=== PATIENT | male | born 1975 | race Caucasian/White ===

== ENCOUNTER 2018-08-03 19:03 | Observation (INO) | payer OTHER ==
[2018-08-03 20:55] LABS: ADD MAN DIFF? NO
[2018-08-03 21:00] LABS: BASOPHILS % 0.6 % (0.0-2.0); EOSINOPHILS # 0.5 10^3/ul (0.0-0.5); EOSINOPHILS % 9.1 % (0.0-7.0); HEMATOCRIT 37.6 % (42.0-52.0); HEMOGLOBIN 12.5 g/dl (14.0-18.0); LYMPHOCYTES # 1.5 10^3/ul (0.8-2.9); LYMPHOCYTES % 30.6 % (15.0-51.0); MEAN CORPUSCULAR HEMOGLOBIN 29.2 pg (29.0-33.0); MEAN CORPUSCULAR HGB CONC 33.2 g/dl (32.0-37.0); MEAN CORPUSCULAR VOLUME 87.9 fl (82.0-101.0); MEAN PLATELET VOLUME 11.4 fl (7.4-10.4); MONOCYTE # 0.5 10^3/ul (0.3-0.9); MONOCYTES % 9.1 % (0.0-11.0); NEUTROPHIL # 2.5 10^3/ul (1.6-7.5); NEUTROPHILS % 50.4 % (39.0-77.0); PLATELET COUNT 312 10^3/UL (140-415); RED BLOOD COUNT 4.28 10^6/ul (4.70-6.10); RED CELL DISTRIBUTION WIDTH 13.7 % (11.5-14.5)
[2018-08-03 21:16] LABS: ANION GAP 9 (5-13); BLOOD UREA NITROGEN 16 mg/dl (7-20); CARBON DIOXIDE 25 mmol/L (21-31); CHLORIDE 106 mmol/L (97-110); CREATININE 0.92 mg/dl (0.61-1.24); Estimated GFR > 60 mL/min (>60); GLUCOSE 95 mg/dl (70-220); SODIUM 140 mmol/L (135-144)
[2018-08-03] MEDS: morphine 4 MG/ML VIAL IV (21:24)
[2018-08-03 21:28] LABS: TROPONIN-I 0.064 ng/ml (0.000-0.120)
[2018-08-03] MEDS: NITROGLYCERIN (SL) 0.4 MG TAB SL (22:50)
[2018-08-04] MEDS ORDERED: ONDANSETRON 4 MG INJ IV
[2018-08-04] MEDS ORDERED: NACL 0.9% 3 ML SYG IV
[2018-08-04] MEDS ORDERED: ALBUTEROL/IPRATROPIUM (NEB) 3 ML AMP HHN
[2018-08-04] MEDS: NITROGLYCERIN (SL) 0.4 MG TAB SL (01:01)
[2018-08-04 02:31] LABS: CREATINE KINASE 58 IU/L (23-200)
[2018-08-04 02:45] LABS: CK INDEX 2.3; CK-MB 1.31 ng/ml (0.0-2.4)
[2018-08-04 06:26] LABS: ADD MAN DIFF? NO
[2018-08-04 06:34] LABS: BASOPHILS % 0.8 % (0.0-2.0); EOSINOPHILS # 0.4 10^3/ul (0.0-0.5); EOSINOPHILS % 9.6 % (0.0-7.0); HEMATOCRIT 38.1 % (42.0-52.0); HEMOGLOBIN 12.5 g/dl (14.0-18.0); LYMPHOCYTES # 1.7 10^3/ul (0.8-2.9); LYMPHOCYTES % 43.3 % (15.0-51.0); MEAN CORPUSCULAR HEMOGLOBIN 28.9 pg (29.0-33.0); MEAN CORPUSCULAR HGB CONC 32.8 g/dl (32.0-37.0); MEAN CORPUSCULAR VOLUME 88.2 fl (82.0-101.0); MEAN PLATELET VOLUME 10.3 fl (7.4-10.4); MONOCYTE # 0.4 10^3/ul (0.3-0.9); MONOCYTES % 9.3 % (0.0-11.0); NEUTROPHIL # 1.5 10^3/ul (1.6-7.5); NEUTROPHILS % 36.5 % (39.0-77.0); PLATELET COUNT 299 10^3/UL (140-415); RED BLOOD COUNT 4.32 10^6/ul (4.70-6.10); RED CELL DISTRIBUTION WIDTH 13.4 % (11.5-14.5)
[2018-08-04 06:57] LABS: HEMOGLOBIN A1C 5.3 % (0-5.9)
[2018-08-04] MEDS: morphine 2 MG INJ IV ×3 (07:02→22:02)
[2018-08-04 07:06] LABS: CREATINE KINASE 54 IU/L (23-200)
[2018-08-04 07:20] LABS: CK INDEX 2.2; CK-MB 1.17 ng/ml (0.0-2.4); TROPONIN-I 0.043 ng/ml (0.000-0.120)
[2018-08-04 08:14] LABS: ALANINE AMINOTRANSFERASE 24 IU/L (13-69); ALBUMIN 3.4 g/dl (3.3-4.9); ALBUMIN/GLOBULIN RATIO 1.17; ALKALINE PHOSPHATASE 56 IU/L (42-121); ANION GAP 9 (5-13); ASPARTATE AMINO TRANSFERASE 28 IU/L (15-46); BILIRUBIN,INDIRECT 0.1 mg/dl (0-1.1); BILIRUBIN,TOTAL 0.1 mg/dl (0.2-1.3); BLOOD UREA NITROGEN 17 mg/dl (7-20); CARBON DIOXIDE 23 mmol/L (21-31); CHLORIDE 107 mmol/L (97-110); CHOL/HDL RATIO 3.8 RATIO; CHOLESTEROL 155 mg/dl (100-200); CREATININE 0.83 mg/dl (0.61-1.24); Estimated GFR > 60 mL/min (>60); GLUCOSE 91 mg/dl (70-220); HDL CHOLESTEROL 40 mg/dl (27-67); LDL CHOLESTEROL,CALCULATED 65 mg/dl; POTASSIUM 4.4 mmol/L (3.5-5.1); SODIUM 139 mmol/L (135-144); TOTAL PROTEIN 6.3 g/dl (6.1-8.1); TRIGLYCERIDES 248 mg/dl (0-149)
[2018-08-04] MEDS: ASPIRIN 81 MG TAB PO (08:23)
[2018-08-04] MEDS: ENOXAPARIN 40 MG/0.4 ML SYG SC (08:30)
[2018-08-04] MEDS: ISOSORBIDE DINITRATE 20 MG TAB PO ×2 (12:36→21:48)
[2018-08-05] MEDS: ACETAMINOPHEN 325 MG TAB PO ×3 (06:11→18:40)
[2018-08-05] MEDS: ASPIRIN 81 MG TAB PO (08:47)
[2018-08-05] MEDS: ISOSORBIDE DINITRATE 20 MG TAB PO ×3 (08:48→20:17)
[2018-08-05] MEDS: morphine 2 MG INJ IV ×3 (08:49→20:18)
[2018-08-05] MEDS: ENOXAPARIN 40 MG/0.4 ML SYG SC (09:34)
[2018-08-05] MEDS: METOPROLOL 25 MG TAB PO (20:17)
[2018-08-06] MEDS: NITROGLYCERIN (SL) 0.4 MG TAB SL (08:06)
[2018-08-06] MEDS: ASPIRIN 81 MG TAB PO (08:17)
[2018-08-06] MEDS: METOPROLOL 25 MG TAB PO (08:18)
[2018-08-06] MEDS: ISOSORBIDE DINITRATE 20 MG TAB PO ×2 (08:18→12:41)
[2018-08-06] MEDS: ENOXAPARIN 40 MG/0.4 ML SYG SC (08:20)
[2018-08-06] MEDS: METOPROLOL 5 MG INJ IV ×2 (11:35→12:39)
[2018-08-06] MEDS: morphine 2 MG INJ IV (11:54)
[2018-08-06] MEDS: METOPROLOL (XL) 100 MG TAB PO (14:07)
[2018-08-06] MEDS ORDERED: DILTIAZEM 25 MG INJ IV (14:30)
[2018-08-06] MEDS: DILTIAZEM 25 MG INJ IV (16:42)
== END 2018-08-06 16:26 | disposition home or self-care (01) ==
LOC: TEL 23:30 → E/R 19:03 → TEL 08-04 02:04
DX: R07.9 Chest pain, unspecified (principal); I25.10 Atherosclerotic heart disease of native coronary artery without angina pectoris; I25.2 Old myocardial infarction; I10 Essential (primary) hypertension; E78.5 Hyperlipidemia, unspecified; R94.31 Abnormal electrocardiogram [ECG] [EKG]; Z79.82 Long term (current) use of aspirin
CPT/HCPCS: 36415; 71045; 80048; 80053; 80061; 82550; 82553; 83036; 83735; 84443; 84484; 85025; 93005; 96374; 99285-25; G0378

== ENCOUNTER 2019-01-14 13:48 | Emergency (ER) | payer OTHER ==
[2019-01-14] MEDS ORDERED: NITROGLYCERIN (SL) 0.4 MG TAB SL (14:00)
[2019-01-14 14:19] LABS: ADD MAN DIFF? NO
[2019-01-14 14:22] LABS: BASOPHILS % 0.5 % (0.0-2.0); EOSINOPHILS # 0.1 10^3/ul (0.0-0.5); HEMATOCRIT 44.3 % (42.0-52.0); LYMPHOCYTES # 0.8 10^3/ul (0.8-2.9); LYMPHOCYTES % 20.2 % (15.0-51.0); MEAN CORPUSCULAR HEMOGLOBIN 29.6 pg (29.0-33.0); MEAN CORPUSCULAR HGB CONC 33.9 g/dl (32.0-37.0); MEAN CORPUSCULAR VOLUME 87.5 fl (82.0-101.0); MEAN PLATELET VOLUME 9.8 fl (7.4-10.4); MONOCYTE # 0.5 10^3/ul (0.3-0.9); MONOCYTES % 11.2 % (0.0-11.0); NEUTROPHIL # 2.7 10^3/ul (1.6-7.5); NEUTROPHILS % 65.6 % (39.0-77.0); PLATELET COUNT 286 10^3/UL (140-415); RED BLOOD COUNT 5.06 10^6/ul (4.70-6.10); RED CELL DISTRIBUTION WIDTH 13.9 % (11.5-14.5)
[2019-01-14 14:22] LABS: WHITE BLOOD COUNT 4.1 10^3/ul (4.8-10.8)
[2019-01-14] MEDS: SODIUM CHLORIDE 0.9% 1L BAG IV* (14:32)
[2019-01-14] MEDS: ACETAMINOPHEN 325 MG TAB PO (14:32)
[2019-01-14] MEDS: ASPIRIN 81 MG TAB PO (14:32)
[2019-01-14] MEDS: NITROGLYCERIN 2% 1 GM OINT PKT TD (14:32)
[2019-01-14 14:39] LABS: ANION GAP 10 (5-13); BLOOD UREA NITROGEN 13 mg/dl (7-20); CALCIUM 9.8 mg/dl (8.4-10.2); CARBON DIOXIDE 25 mmol/L (21-31); CHLORIDE 104 mmol/L (97-110); CREATININE 0.91 mg/dl (0.61-1.24); Estimated GFR > 60 mL/min (>60); GLUCOSE 86 mg/dl (70-220); POTASSIUM 3.9 mmol/L (3.5-5.1); SODIUM 139 mmol/L (135-144)
[2019-01-14 14:40] LABS: ALANINE AMINOTRANSFERASE 107 IU/L (13-69); ALBUMIN 4.3 g/dl (3.3-4.9); ALKALINE PHOSPHATASE 60 IU/L (42-121); ASPARTATE AMINO TRANSFERASE 49 IU/L (15-46); BILIRUBIN,INDIRECT 0.7 mg/dl (0-1.1); BILIRUBIN,TOTAL 0.7 mg/dl (0.2-1.3); LIPASE 85 U/L (23-300); TOTAL PROTEIN 7.3 g/dl (6.1-8.1)
[2019-01-14 14:51] LABS: TROPONIN-I < 0.012 ng/ml (0.000-0.120)
[2019-01-14 15:24] LABS: INR 1.04; PROTIME 13.7 Sec (11.9-14.9); PT RATIO 1.1
[2019-01-14 15:25] LABS: PARTIAL THROMBOPLASTIN TIME 30.1 Sec (23.0-35.0)
[2019-01-14 15:53] LABS: ADD UMIC NO; UR ASCORBIC ACID NEGATIVE (NEGATIVE); UR BILIRUBIN (Dip) NEGATIVE (NEGATIVE); UR BLOOD (Dip) NEGATIVE (NEGATIVE); UR CLARITY SLIGHTLY CLOUDY (CLEAR); UR COLOR YELLOW (YELLOW); UR GLUCOSE (Dip) NEGATIVE (NEGATIVE); UR KETONES (Dip) NEGATIVE (NEGATIVE); UR LEUKOCYTE ESTERASE (Dip) NEGATIVE Leu/ul (NEGATIVE); UR NITRITE (Dip) NEGATIVE (NEGATIVE); UR RBC 1 /HPF (0-5); UR SPECIFIC GRAVITY (Dip) 1.019 (1.003-1.030); UR TOTAL PROTEIN (Dip) NEGATIVE (NEGATIVE); UR UROBILINOGEN (Dip) NEGATIVE (NEGATIVE); UR WBC 1 /HPF (0-5)
== END 2019-01-14 16:32 | disposition home or self-care (01) ==
LOC: E/R 16:32
DX: R07.9 Chest pain, unspecified (principal); J06.9 Acute upper respiratory infection, unspecified
CPT/HCPCS: 36415; 71045; 80048; 80076; 81001; 81003; 83605; 83690; 84484; 85025; 85378; 85610; 85730; 87040-91; 87086; 93005; 99285-25